=== PATIENT | male | born 1965 | race Caucasian/White ===

== ENCOUNTER 2020-07-12 04:15 | Emergency (ER) | payer BC ==
--- NOTE | 2020-07-12 04:31 | EDM.PDOC ---
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 This happened about 1/2-hour ago, he cannot move his arms or legs although he does have sensation. No nausea or vomiting. Vitals are stable. Onset: Sudden Duration: Hour(s): (Fell just under 1 hour ago) Associated Symptoms: Reports: Confusion (Memory loss of the event), Weakness (Unable to move upper or lower extremities with any significant purposeful movement). Denies: Chest Pain, Cough, Fever/Chills, Headaches, Nausea/Vomiting, Shortness of Breath generalized Pain Score (Numeric/FACES): 7 - Related Data Allergies Allergy/AdvReac Type Severity Reaction Status Date / Time No Known Allergies Allergy Verified 07/12/20 04:32 Home Meds: Home Meds PARoxetine [Paxil] 30 mg PO DAILY 07/12/20 [History] Rosuvastatin [Crestor] 20 mg PO DAILY 07/12/20 [History] atorvaSTATin Calcium [Atorvastatin Calcium] 20 mg PO DAILY 07/12/20 [History] hydroCHLOROthiazide [Hydrochlorothiazide] 12.5 mg PO DAILY 07/12/20 [History] ED ROS GENERAL - Review of Systems Review Of Systems: See Below Constitutional: Denies: Fever, Chills HEENT: Denies: Hearing Loss, Vision Change Respiratory: Denies: Shortness of Breath Cardiovascular: Denies: Chest Pain GI/Abdominal: Denies: Abdominal Pain, Nausea, Vomiting Skin: Reports: Other (Abrasions are present on both sides of the abdomen) Neurological: Reports: Confusion, Tingling (Tingling sensation in his arms and legs, his lower back), Weakness. Denies: Headache Psychiatric: Reports: No Symptoms ED EXAM, NEURO - Physical Exam Exam: See Below Exam Limited By: No Limitations General Appearance: Alert, No Apparent Distress, Other (Patient is fairly calm) Eye Exam: Bilateral Eye: EOMI, PERRL Head Exam: Atraumatic Neck: Other (Cervical collar is in place, not removed) Respiratory/Chest: No Respiratory Distress, Lungs Clear Cardiovascular: Regular Rate, Rhythm GI/Abdominal: Soft, Non-Tender, Other (Superficial abrasions are present on both sides of the abdomen) Neurological: Alert, Normal Mood/Affect, Oriented x 3, No Response to Pain (No response to pain of the right foot), Other (No grasp strength on the left hand, minimal grasp strength on the right) Back Exam: Other (Patient was logrolled and shows no evidence of trauma to the back. No percussion tenderness, tactile sensation is "numb" but he can feel touch to both flank areas) Extremities: Other (Babinski's is upgoing on the left foot, equivocal on the right). No: Pedal Edema Psychiatric: Normal Affect, Normal Mood Skin Exam: Warm, Dry (No diaphoresis) Course - Vital Signs Last Recorded V/S: Last Vital Signs Temp 97.3 F 07/12/20 05:24 Pulse 71 07/12/20 06:17 Resp 20 07/12/20 06:17 BP 97/50 L 07/12/20 06:17 Pulse Ox 90 L 07/12/20 06:17 - Orders/Labs/Meds Labs: Laboratory Tests 07/12/20 07/12/20 Range/Units 04:30 04:30 WBC 8.9 (4.5-11.0) K/uL RBC 4.82 (4.30-5.90) M/uL Hgb 14.3 (12.0-15.0) g/dL Hct 43.5 (40.0-54.0) % MCV 90 (80-98) fL MCH 30 (27-31) pg MCHC 33 (32-36) % Plt Count 292 (150-400) K/uL Neut % (Auto) 71 H (36-66) % Lymph % (Auto) 24 (24-44) % Mower % (Auto) 5 (2-6) % Eos % (Auto) 1 L (2-4) % Baso % (Auto) 0 (0-1) % Sodium 143 (140-148) mmol/L Potassium 3.8 (3.6-5.2) mmol/L Chloride 106 (100-108) mmol/L Carbon Dioxide 28 (21-32) mmol/L Anion Gap 9.5 (5.0-14.0) mmol/L BUN 15 (7-18) mg/dL Creatinine 1.1 (0.8-1.3) mg/dL Est Cr Clr Drug Dosing 78.91 mL/min Estimated GFR (MDRD) > 60 (>60) Glucose 126 H (74-106) mg/dL Calcium 8.3 L (8.5-10.1) mg/dL Total Bilirubin 0.2 (0.2-1.0) mg/dL AST 18 (15-37) U/L ALT 36 (12-78) U/L Alkaline Phosphatase 93 (46-116) U/L Total Protein 6.4 (6.4-8.2) g/dL Albumin 3.4 (3.4-5.0) g/dL Globulin 3.0 (2.3-3.5) g/dL Albumin/Globulin Ratio 1.1 L (1.2-2.2) Meds: Medications Discontinued Medications Generic Name Dose Route Start Last Admin Trade Name Freq PRN Reason Stop Dose Admin Fentanyl 50 mcg 07/12/20 06:03 07/12/20 06:12 Sublimaze IVPUSH 07/12/20 06:04 50 mcg ONETIME ONE Administration - Re-Assessments/Exams Free Text/Narrative Re-Assessment/Exam: 07/12/20 04:[address] and cervical spine CT without contrast were obtained. After the patient was logrolled he was removed from the backboard. Cervical collar was left in place. Called [facility] in [place], Dr. Leavitt of the emergency department kindly accepted the patient for transfer and will try to arrange flight. CBC and CMP were obtained. 07/12/20 04:59 IMPRESSION: 1. No acute findings. 2. Nonspecific white matter disease, typical of chronic microvascular disease. Extraspinal findings: Paraspinous soft tissues are unremarkable. IMPRESSION: 1. No sign of acute injury. 2. Multilevel degenerative spondylosis Above head and cervical spine CT findings were discussed with the patient. After being in the emergency room for a half hour he was starting to have more ability to move his arms and could start to move his toes slightly. 07/12/20 05:24 Unfortunately the weather is incompatible with flying, ground transportation will be attempted. Patient continues to slowly improve. 07/12/20 05:24 Labs are reassuring and basically normal. 07/12/20 06:39 EMS arrived to transfer the patient a few hours after he arrived in our emergency room, he slowly improved. He did need some pain control for some muscle spasms in his posterior shoulders and right leg, he was given 50 mcg of IV fentanyl. He remained stable. Patient was sent to [facility] for continuity of care due to previous neurological care, possibility of spinal cord injury such as central cord syndrome Departure - Departure Time of Disposition: 06:56 Disposition: DC/Tfer to [place] [id number] Clinical Impression: Spinal cord injury, Partial paralysis of both lower limbs, Paralysis of both upper limbs - Discharge Information Referrals: PCP,None [Primary Care Provider] - Forms: ED Department Discharge Care Plan Goals: Patient will be transferred by EMS to [facility] in [facility] for further neurologic evaluation and treatment of spinal cord injury causing extremity paralysis. Sepsis Event Note (ED) - Focused Exam Vital Signs: Vital Signs Temp Pulse Resp BP Pulse Ox 07/12/20 06:17 71 20 97/50 L 90 L 07/12/20 05:24 97.3 F 74 14 98/47 L 93 L
--- NOTE | 2020-07-12 04:56 | CRLCT ---
INDICATION: Fall, cannot move arms or legs TECHNIQUE: Head CT without contrast. COMPARISON: None FINDINGS: CSF spaces: Within normal limits for age. Brain parenchyma: There are nonspecific low attenuation white matter changes consistent with chronic microvascular disease. No sign of mass, hemorrhage, or midline shift. Skull base and calvarium: The visualized paranasal sinuses and mastoid air cells demonstrate no acute or significant findings. The visualized orbits are grossly unremarkable. No skull fractures. IMPRESSION: 1. No acute findings. 2. Nonspecific white matter disease, typical of chronic microvascular disease. Please note that all CT scans at this facility use dose modulation, iterative reconstruction, and/or weight-based dosing when appropriate to reduce radiation dose to as low as reasonably achievable. Dictated by Liliana Moody MD @ Jul 12 2020 4:52AM Signed by Dr. Liliana Moody @ Jul 12 2020 4:54AM
--- NOTE | 2020-07-12 05:00 | CRLCT ---
INDICATION: Fall, cannot move arms or legs TECHNIQUE: CT cervical spine without contrast. COMPARISON: None FINDINGS: Vertebral alignment: Alignment is normal. Vertebrae: Status post anterior fusion at C6-C7. There is also bony fusion between the C5 and C6 vertebral bodies. There are no fractures or suspicious bony lesions. Discs and facet joints: There are severe multilevel degenerative disc and facet changes. Extraspinal findings: Paraspinous soft tissues are unremarkable. IMPRESSION: 1. No sign of acute injury. 2. Multilevel degenerative spondylosis. Please note that all CT scans at this facility use dose modulation, iterative reconstruction, and/or weight-based dosing when appropriate to reduce radiation dose to as low as reasonably achievable. Dictated by Liliana Moody MD @ Jul 12 2020 4:55AM Signed by Dr. Liliana Moody @ Jul 12 2020 4:59AM
[2020-07-12] MEDS ORDERED: fentaNYL 100 MCG/2 ML SDV IVPUSH ONE (06:03)
== END 2020-07-12 06:56 | disposition other institution (70) ==
LOC: JP.ED 04:15
DX: S14.109A Unspecified injury at unspecified level of cervical spinal cord, initial encounter (principal); T14.8XXA Other injury of unspecified body region, initial encounter; G83.10 Monoplegia of lower limb affecting unspecified side; Z79.899 Other long term (current) drug therapy; W19.XXXA Unspecified fall, initial encounter
CPT/HCPCS: 36415; 70450; 72125; 80053; 85025; 96374; 99285; J3010